=== PATIENT | female | born 1940 | race Caucasian/White ===

== ENCOUNTER 2018-02-07 10:35 | Emergency (ER) | payer MEDICARE, BC ==
[2018-02-07] MEDS ORDERED: Sodium Chloride 0.9% 10 ML Syringe FLUSH PRN (10:50)
--- NOTE | 2018-02-07 11:01 | EDM.PDOC ---
ED HPI GENERAL MEDICAL PROBLEM - General Stated Complaint: FACE DROOPY, LOST VISION IN R EYE Time Seen by Provider: 02/07/18 10:35 Source of Information: Reports: Patient History Limitations: Reports: No Limitations - History of Present Illness INITIAL COMMENTS - FREE TEXT/NARRATIVE: Patient comes into the emergency Department with complaints of right facial droop. This started approximately 48 hours ago. Patient states this came out of the blue when she noticed facial weakness and blurred vision with a large amount of discharge. Pt also did have a headache right around the time of the onset at the base of her skull. She denies any worsening of the symptoms. Denies any numbness, tingling, difficulty moving any extremity. No recent fevers , abx treatment, or tick bites. Onset: Sudden - Related Data Home Meds: Home Meds Polymyxin B/Trimethoprim [PolyTrim Ophth Soln] 1 ml OP Q4HR 7 Days #1 bottle 06/26 [Rx] predniSONE [Prednisone] 20 mg PO DAILY #25 tablet 02/07/18 [Rx] valACYclovir [Valtrex] 1,000 mg PO TID 7 Days #21 tablet 02/07/18 [Rx] ED ROS GENERAL - Review of Systems Review Of Systems: See Below Constitutional: Reports: No Symptoms HEENT: Reports: Eye Discharge Respiratory: Reports: No Symptoms Cardiovascular: Reports: No Symptoms Endocrine: Reports: No Symptoms GI/Abdominal: Reports: No Symptoms : Reports: No Symptoms Musculoskeletal: Reports: No Symptoms Skin: Reports: No Symptoms Neurological: Reports: Headache, Other (right facial droop) ED EXAM, NEURO - Physical Exam Exam: See Below Exam Limited By: No Limitations General Appearance: Alert, WD/WN, No Apparent Distress Eye Exam: Right Eye: Conjunctival Injection (matter noted at the corner of the eye ), Vision Changes (20/40 L, 20/200R), Bilateral Eye: EOMI, PERRL, Other ( inflamation noted lower lid. Unable to raise right eye brow and forehead muscles paralysis ) Ears: Normal External Exam, Normal Canal, Normal TMs Nose: Normal Inspection, Normal Mucosa, No Blood Throat/Mouth: Normal Inspection, Normal Lips, Normal Teeth, Normal Voice, No Airway Compromise, Other (right side facial droop. Is able to stick tongue out. vocabulary appropriate. No word salad noted. No swollowing complication noted ) Head Exam: Atraumatic, Normocephalic Neck: Normal Inspection, Supple, Non-Tender, Full Range of Motion Respiratory/Chest: No Respiratory Distress, Lungs Clear, No Accessory Muscle Use , Chest Non-Tender Cardiovascular: Normal Peripheral Pulses, Regular Rate, Rhythm GI/Abdominal: Normal Bowel Sounds Neurological: Alert, Normal Mood/Affect, CN II-XII Intact, Oriented x 3 Back Exam: Normal Inspection, Full Range of Motion Extremities: Normal Inspection, Normal Range of Motion, Non-Tender, No Pedal Edema, Normal Capillary Refill Psychiatric: Normal Affect, Normal Mood Skin Exam: Warm, Dry, Intact, Normal Color, No Rash EKG INTERPRETATION EKG Date: 02/07/18 Rhythm: A-Fib Comparison: NA - No Prior EKG Course - Orders/Labs/Meds Orders: Active Orders 24 hr Category Date Time Status Assess Neurological Status [RC] Q15M Care 02/07/18 10:50 Active Blood Glucose Check, Bedside [RC] ONETIME Care 02/07/18 10:50 Active EKG Documentation Completion [RC] STAT Care 02/07/18 10:52 Active Oxygen Therapy [RC] PRN Care 02/07/18 10:50 Active Head wo Cont [CT] Stat Exams 02/07/18 10:50 Taken Sodium Chloride 0.9% [Saline Flush] Med 02/07/18 10:50 Active 10 ml FLUSH ASDIRECTED PRN Peripheral IV Insertion Adult [OM.PC] Urgent Oth 02/07/18 10:50 Ordered Medication Orders Sodium Chloride (Saline Flush) 10 ml FLUSH ASDIRECTED PRN PRN Reason: Keep Vein Open Labs: Laboratory Tests 02/07/18 02/07/18 02/07/18 Range/Units 10:48 10:50 10:50 WBC 8.1 (4.0-10.0) x10^3/uL RBC 4.48 (4.00-5.50) x10^6/uL Hgb 14.8 (12.0-16.0) g/dL Hct 44.7 (33.0-47.0) % MCV 99.8 H (78.0-93.0) fL MCH 33.0 H (26.0-32.0) pg MCHC 33.1 (32.0-36.0) g/dL RDW Coeff of Danielle 14.1 (10.0-15.0) % Plt Count 228 (130-400) x10^3/uL Neut % (Auto) 79.2 (50.0-80.0) % Lymph % (Auto) 11.1 L (25.0-50.0) % Branch % (Auto) 8.4 (2.0-11.0) % Eos % (Auto) 1.2 (0.0-4.0) % Baso % (Auto) 0.1 L (0.2-1.2) % PT (9.6-11.4) SEC INR (2.0-3.5) Sodium 140 (136-145) mmol/L Potassium 3.8 (3.5-5.1) mmol/L Chloride 105 (98-107) mmol/L Carbon Dioxide 28 (21-32) mmol/L Anion Gap 10.8 (10-20) mmol/L BUN 18 (7-18) mg/dL Creatinine 1.0 (0.55-1.02) mg/dL Est Cr Clr Drug Dosing TNP Estimated GFR (MDRD) 54 Glucose 82 (74-106) mg/dL POC Glucose 72 L (74-106) mg/dL Calcium 9.0 (8.5-10.1) mg/dL Corrected Calcium 9.16 (8.5-10.1) mg/dL Total Bilirubin 0.9 (0.2-1.0) mg/dL AST 19 (15-37) U/L ALT 33 (14-59) U/L Alkaline Phosphatase 71 (46-116) U/L POC Troponin I (0.00-0.08) ng/mL Total Protein 7.0 (6.4-8.2) g/dL Albumin 3.8 (3.4-5.0) g/dL Globulin 3.2 Albumin/Globulin Ratio 1.19 02/07/18 02/07/18 Range/Units 10:50 10:55 WBC (4.0-10.0) x10^3/uL RBC (4.00-5.50) x10^6/uL Hgb (12.0-16.0) g/dL Hct (33.0-47.0) % MCV (78.0-93.0) fL MCH (26.0-32.0) pg MCHC (32.0-36.0) g/dL RDW Coeff of Danielle (10.0-15.0) % Plt Count (130-400) x10^3/uL Neut % (Auto) (50.0-80.0) % Lymph % (Auto) (25.0-50.0) % Branch % (Auto) (2.0-11.0) % Eos % (Auto) (0.0-4.0) % Baso % (Auto) (0.2-1.2) % PT 10.4 (9.6-11.4) SEC INR 1.0 L (2.0-3.5) Sodium (136-145) mmol/L Potassium (3.5-5.1) mmol/L Chloride (98-107) mmol/L Carbon Dioxide (21-32) mmol/L Anion Gap (10-20) mmol/L BUN (7-18) mg/dL Creatinine (0.55-1.02) mg/dL Est Cr Clr Drug Dosing Estimated GFR (MDRD) Glucose (74-106) mg/dL POC Glucose (74-106) mg/dL Calcium (8.5-10.1) mg/dL Corrected Calcium (8.5-10.1) mg/dL Total Bilirubin (0.2-1.0) mg/dL AST (15-37) U/L ALT (14-59) U/L Alkaline Phosphatase (46-116) U/L POC Troponin I 0.01 (0.00-0.08) ng/mL Total Protein (6.4-8.2) g/dL Albumin (3.4-5.0) g/dL Globulin Albumin/Globulin Ratio Meds: Medications Generic Name Dose Route Start Last Admin Trade Name Freq PRN Reason Stop Dose Admin Sodium Chloride 10 ml 02/07/18 10:50 Saline Flush FLUSH ASDIRECTED PRN Keep Vein Open Departure - Departure Time of Disposition: 12:05 Disposition: Home, Self-Care 01 Condition: Good Clinical Impression: Hernandez's palsy Conjunctivitis, right eye Qualifiers: Conjunctivitis type: acute Acute conjunctivitis type: bacterial Qualified Code( s): H10.31 - Unspecified acute conjunctivitis, right eye - Discharge Information *PRESCRIPTION DRUG MONITORING PROGRAM REVIEWED*: Not Applicable *COPY OF PRESCRIPTION DRUG MONITORING REPORT IN PATIENT CAROL: Not Applicable Prescriptions: Polymyxin B/Trimethoprim [PolyTrim Ophth Soln] 1 ml OP Q4HR 7 Days #1 bottle predniSONE [Prednisone] 20 mg PO DAILY #25 tablet valACYclovir [Valtrex] 1,000 mg PO TID 7 Days #21 tablet Instructions: Bacterial Conjunctivitis, [id number], Hernandez Palsy, Adult Additional Instructions: 1. rest 2. Keep eye lubricated 3. May use patch if eye becomes extremely dry 4. take prescriptions as advised 5. Follow with eye doctor with any continued blurred vision 6. Take polytrim as prescribed 7. Follow up with PCP within a week 8. Please call with any questions or concerns - Problem List Review Problem List Initiated/Reviewed/Updated: Yes - My Orders Last 24 Hours: My Active Orders 02/07/18 10:50 Assess Neurological Status [RC] Q15M Blood Glucose Check, Bedside [RC] ONETIME Oxygen Therapy [RC] PRN Head wo Cont [CT] Stat Sodium Chloride 0.9% [Saline Flush] 10 ml FLUSH ASDIRECTED PRN Peripheral IV Insertion Adult [OM.PC] Urgent 02/07/18 10:52 EKG Documentation Completion [RC] STAT - Assessment/Plan Last 24 Hours: My Active Orders 02/07/18 10:50 Assess Neurological Status [RC] Q15M Blood Glucose Check, Bedside [RC] ONETIME Oxygen Therapy [RC] PRN Head wo Cont [CT] Stat Sodium Chloride 0.9% [Saline Flush] 10 ml FLUSH ASDIRECTED PRN Peripheral IV Insertion Adult [OM.PC] Urgent 02/07/18 10:52 EKG Documentation Completion [RC] STAT Assessment:: 1. right side facial droop-hernandez's palsy 2. blurred vision- bacterial conjunctivitis Plan: 1. CT of head completed. Results reviewed with the pt 2. Labs completed in ER. Results reviewed with the pt 3. Update completed to Son who live in [place]. 4. Consultation with Neurology [facility]. Recommendation valacyclovir and prednisone taper. Does not feel any other neurological work up is needed at this time. Did state that if the pt continued to have blurry vision she should see a eye doctor as soon as possible. 5. Pt prescribed valacyclovir, prednisone, and polytrim. Pt advised to take all the medication 6. Follow up education provided, diet, exercise, hand hygiene, eye lubrication, eye doctor consultation, rest, and OTC medication reviewed. 7. Pt advised to call or return in need be
[2018-02-07 11:19] LABS: ANION GAP 10.8 mmol/L (10-20); CHLORIDE,CL 105 mmol/L (98-107); SODIUM,NA 140 mmol/L (136-145)
== END 2018-02-07 12:15 | disposition home or self-care (01) ==
LOC: VM.ED 10:35
DX: G51.0 Bell's palsy (principal); H10.31 Unspecified acute conjunctivitis, right eye; Z79.899 Other long term (current) drug therapy
CPT/HCPCS: 70450; 80053; 82962; 84484; 85025; 85610; 93005; 99285